=== PATIENT | male | born 1985 | race Caucasian/White ===

== ENCOUNTER 2019-01-13 20:29 | Inpatient (IN) | payer OTHER ==
[~2019-01-13] VITALS: Ht 177.8 cm; Wt 88.5 kg
[2019-01-13 20:30] VITALS: BP 139/93
[2019-01-13 23:20] VITALS: BP 138/74
[2019-01-14] VITALS (10 sets, daily range): BP systolic 106–135; BP diastolic 60–92
--- NOTE | 2019-01-14 01:05 | NUR ---
Pt. admitted to the unit from the OR accompanied by staff and spouse. He is alert and oriented. Admission assessment and history is completed. Pt. medicated upon arrival for pain in his right lower leg. Dressing to the right lower extremity is dry and intact with wound vac present.
[2019-01-14 04:43] LABS: CALCIUM 8.5 mg/dL (8.5-10.1); CREATININE 1.2 mg/dL (0.7-1.3); POTASSIUM 4.5 mmol/L (3.5-5.1); TOTAL BILIRUBIN 0.3 mg/dL (<0.1-1.0); TOTAL PROTEIN 7.3 g/dL (6.4-8.2)
[2019-01-14 04:58] LABS: ABSOLUTE NEUTROPHILS 11.1 thou/uL (1.4-8.2); BASOPHILS 0.2 % (0.0-2.0); EOSINOPHILS 0.1 % (0.0-3.0); HEMATOCRIT 43.8 % (42.0-52.0); HEMOGLOBIN 14.4 gm/dL (14.0-18.0); LYMPHOCYTES 7.3 % (24.0-44.0); MCHC 32.9 g/dL (28.0-37.0); MCV 85.3 fL (80.0-100.0); MONOCYTES 2.3 % (1.0-8.0); PLATELET COUNT 206 thou/uL (150-400); POLYS 90.1 % (36.0-66.0); RBC 5.14 mil/uL (4.50-6.00); RDW 14.1 % (10.5-14.5); WBC 12.3 thou/uL (4.0-11.0)
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
--- NOTE | 2019-01-14 14:45 | NUR ---
PT VITAL SIGNS STABLE THROUGHOUT SHIFT. PT'S PAIN CONTROLLED WITH MEDICATION, SKIN INTACT. PT COMPLIANT WITH POC. DEBRIDEMENT TOMORROW. PT RESTING COMFORTABLY, WILL CONTINUE TO MONITOR.
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
--- NOTE | 2019-01-15 03:48 | NUR ---
Pt. rested quietly at intervals during the night when checked on during frequent rounds. He was given po pain meds (see emar) for c/o pain to his right lower extremity with some relief noted. Dressing to right lower extremity is dry and intact.
[2019-01-15 05:21] VITALS: BP 107/60
[2019-01-15 10:00] VITALS: BP 124/77
[2019-01-15 10:30] VITALS: BP 124/74
[2019-01-15 11:00] VITALS: BP 133/79
[2019-01-15 11:30] VITALS: BP 139/81
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
--- NOTE | 2019-01-15 13:10 | NUR ---
Assumed pt care this am, pt was taken down to the OR during shift change for thge right leg wound closure. Pt returned to the room around 10 am, right leg is covered in zak bandage intact with no drainage. Pain is managed with a medcaition, partial relief has been noted. Regular diet is well tolerated, pt is cleared to dc from ortho stand point, awaiting Dr. Bae and Dr. Alba for pt to DC. POC followed.
[2019-01-15] MEDS ORDERED: AUGMENTIN 875-1 EACH PO (13:34)
[2019-01-15] MEDS ORDERED: CIPRO500 MG PO (13:34)
[2019-01-15 14:07] VITALS: BP 139/81
--- NOTE | 2019-01-18 11:16 | O ---
[facility] [place] [address] OPERATIVE REPORT Name: FRANSISCA CAMPBELL Room #: 449-I [facility] IN M.R.#: [id number] Admission: 01/14/19 ������������������ Attend Phys: Tony Alba MD Discharge: 01/15/19 ������������������ Date of : 83 Report #: [id number] THIS REPORT FOR: //name// CC: Tony Johnson November DATE OF SERVICE: 01/15/2019 PREOPERATIVE DIAGNOSIS: Laceration and wound, right lower leg. POSTOPERATIVE DIAGNOSIS: Laceration and wound, right lower leg. PROCEDURE: Irrigation, debridement and wound closure, right leg wound. SURGEON: Pacheco Johnson MD INDICATIONS: This 33-year-old active athletic gentleman injured the right leg 2 days ago when he stepped over a log and impaled the leg on a protruding branch. This resulted in a 15 cm laceration with extension into the subfascial muscle layer. He was brought to the operating room emergently that evening for an aggressive debridement. The wound was dressed open with a wound VAC anticipating return to the operating room today. DESCRIPTION OF PROCEDURE: The patient was returned to the operating room and the previous wound VAC dressing was removed. The wound appears to be clean and with good blood supply. There was no evidence of purulence and no evidence of any further foreign material. The skin edges, which were previously debrided sharply are now healthy and with good perfusion and no evidence of ischemia. The subcutaneous tissues appear to be clean. The area beneath the skin edges was gently probed and cultures taken. The wound was then further copiously irrigated with antibiotic solution taking care to carefully probe down into the muscle layer where the previous penetrating injury had advanced and also uncovering the subcutaneous skin flap areas surrounding the wound. No areas of purulence or drainage or hematoma were identified. There was no evidence of any further foreign material. The skin and subcutaneous tissues and muscle all appeared to be healthy and without evidence of infection. Given this, I felt it was reasonable at this point to close the wound loosely. This was accomplished using only kristine in the skin. No deep sutures were utilized. A gently compressive dressing was then applied. The patient was awakened and returned to the recovery room in good condition. ��������������������������������������������� <ELECTRONICALLY SIGNED> ���������������������������������������� By: Pacheco Johnson MD ��������������������������������������������� 01/18/19 1116 [id number] 0923 Pacheco Johnson MD /nt
== END 2019-01-15 15:24 | disposition home or self-care (01) | DRG 581 ==
LOC: ER 20:29 → EROBS 22:28 → 4W 23:20 → ENTRNSPT 01-15 14:30 → 4W 01-15 15:24
PROVIDERS: Nurse Practitioner Acute Care; ADMIT Hospitalist
PROC: 3E0234Z Introduction of Serum, Toxoid and Vaccine into Muscle, Percutaneous Approach (ICD-10-PCS; 2019-01-13)
PROC: 0KBS0ZZ Excision of Right Lower Leg Muscle, Open Approach (ICD-10-PCS; principal; 2019-01-14)
PROC: 3E10X8Z Irrigation of Skin and Mucous Membranes using Irrigating Substance (ICD-10-PCS; 2019-01-14)
PROC: 3E10X8Z Irrigation of Skin and Mucous Membranes using Irrigating Substance (ICD-10-PCS; 2019-01-15)
DX: S81.811A Laceration without foreign body, right lower leg, initial encounter (principal); X58.XXXA Exposure to other specified factors, initial encounter; Z85.47 Personal history of malignant neoplasm of testis; Z88.8 Allergy status to other drugs, medicaments and biological substances; Y92.89 Other specified places as the place of occurrence of the external cause; Y99.8 Other external cause status; Z23 Encounter for immunization; Y93.55 Activity, bike riding
CPT/HCPCS: 10040; 50010; 50101; 50366; 50386; 50643; 51412; 53078; 57091; 57103; 62110; 62900; 70005